=== PATIENT | female | born 1965 | race Caucasian/White ===

== ENCOUNTER 2021-01-09 00:19 | Emergency (ER) | payer OTHER ==
--- NOTE | 2021-01-09 00:36 | EDM.PDOC ---
ED HPI GENERAL MEDICAL PROBLEM - General Stated Complaint: SEVERE RIGHT ABDOMINAL PAIN Time Seen by Provider: 01/09/21 00:30 Source of Information: Reports: Patient History Limitations: Reports: No Limitations - History of Present Illness INITIAL COMMENTS - FREE TEXT/NARRATIVE: 55-year-old female who reports that almost nightly for about the past week and a half she has been having pain in her right posterior flank and back area seems to only be present when she is lying down for bed night the pain seems to be present for a good portion of the night and she doesn't really seem to have anything that makes the pain better or worse and by the morning, she reports the pain is gone and she doesn't really have any more pain through the day until she is lying down for bed at night again. She denies any nausea or vomiting and she denies any worsening with eating or drinking. She has had no fevers or chills. No cough. She has been eating and drinking per her norm. No dysuria or hematuria. Tonight, shortly after going to bed, at approximately 10 PM she developed pain in her right upper abdomen that seemed to wrap around and radiate through to her back. She states that it started rather small and gradually got worse over time. She states he got to the point of where the pain was a 10/10 and she was profusely diaphoretic associated with this. He states the pain is worse that she has ever had. She states she has never had pain like this before. He states that it really did not matter what position she was in, the pain just seemed to be all encompassing. The pain was just lining up and her rotted to the emergency department via private vehicle for evaluation. Her only after her vital signs were obtained, the patient reports the pain just started to let up and it has gradually improved over time. At the end of my initial evaluation of the patient, her pain was essentially gone there was no more sweating. She had no trouble breathing. There were no other associated signs or symptoms. There were no other modifying factors. 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 (see below) Right Upper Abdomen Pain Score (Numeric/FACES): 9 - Related Data Allergies Allergy/AdvReac Type Severity Reaction Status Date / Time adhesive Allergy Rash Verified 01/09/21 00:32 Home Meds: Home Meds Folic Acid 1 mg PO DAILY 01/09/21 [History] Hydroxychloroquine [Plaquenil] 100 mg PO BID 01/09/21 [History] metHOTREXate sodium [Methotrexate] 5 mg PO WEEKLY 01/09/21 [History] Past Medical History Musculoskeletal History: Reports: RA (On methotrexate and Plaquenil) - Past Surgical History HEENT Surgical History: Reports: Naso-Sinus Surgery Musculoskeletal Surgical History: Reports: Shoulder Surgery, Other (See Below) (Right open knee surgery. Right hand reconstructive surgery) Social & Family History - Tobacco Use Tobacco Use Status *Q: Unknown Ever Used Tobacco (Nonsmoker.) - Alcohol Use Alcohol Use History: Yes Alcohol Use Frequency: Rarely - Living Situation & Occupation Occupation: Employed ED ROS GENERAL - Review of Systems Review Of Systems: See Below Constitutional: Reports: Diaphoresis. Denies: Fever, Chills HEENT: Denies: Throat Pain, Vision Change Respiratory: Reports: Shortness of Breath. Denies: Hemoptysis Cardiovascular: Denies: Chest Pain, Palpitations GI/Abdominal: Reports: Abdominal Pain. Denies: Nausea, Vomiting : Reports: Flank Pain. Denies: Dysuria, Hematuria Musculoskeletal: Denies: Neck Pain, Shoulder Pain Skin: Reports: Diaphoresis. Denies: Rash, Erythema Neurological: Denies: Dizziness, Weakness Hematologic/Lymphatic: Denies: Easy Bleeding, Easy Bruising ED EXAM, GI/ABD - Physical Exam Exam: See Below Exam Limited By: No Limitations General Appearance: Alert, WD/WN, Mild Distress, Other (Patient improving during my exam.) Eyes: Bilateral: Normal Appearance (Sclera are anicteric), EOMI Ears: Normal External Exam, Hearing Grossly Normal Nose: Normal Inspection, Normal Mucosa, No Blood Throat/Mouth: Normal Inspection, Normal Oropharynx, Normal Voice, No Airway Compromise Head: Atraumatic, Normocephalic Neck: Normal Inspection, Supple, Non-Tender, Full Range of Motion Respiratory/Chest: No Respiratory Distress, Lungs Clear, Normal Breath Sounds, No Accessory Muscle Use, Chest Non-Tender Cardiovascular: Normal Peripheral Pulses, Regular Rate, Rhythm, No Murmur GI/Abdominal Exam: Normal Bowel Sounds, Soft, Tender, Other (Mildly tender in right upper quadrant.) Back Exam: Normal Inspection, Full Range of Motion. No: CVA Tenderness (R), CVA Tenderness (L) Extremities: Normal Inspection, Normal Range of Motion, Non-Tender, No Pedal Edema, Normal Capillary Refill Neurological: Alert, Oriented, CN II-XII Intact, Normal Cognition, No Motor/Sensory Deficits Skin Exam: Warm, Intact, Diaphoretic #1 Interpretation EKG Date: 01/09/21 Time: 00:52 Rhythm: NSR Rate (Beats/Min): 67 [place]: LAD-Left [place] Deviation (Slight left axis) P-Wave: Present QRS: Normal ST-T: Normal QT: Prolonged (Slightly prolonged QTc.) Comparison: NA - No Prior EKG Course - Vital Signs Last Recorded V/S: Last Vital Signs Temp 36.6 C 01/09/21 00:35 Pulse 69 01/09/21 01:44 Resp 20 01/09/21 00:35 BP 141/85 H 01/09/21 01:44 Pulse Ox 100 01/09/21 00:35 - Orders/Labs/Meds Orders: Active Orders 24 hr Category Date Time Status EKG Documentation Completion [RC] ASDIRECTED Care 01/09/21 00:54 Active CBC WITH AUTO DIFF [HEME] Stat Lab 01/09/21 01:05 Received EKG 12 Lead [EK] Routine Ther 01/09/21 00:53 Ordered Labs: Laboratory Tests 01/09/21 01/09/21 01/09/21 Range/Units 00:59 01:05 01:05 Sodium 145 (135-145) mmol/L Potassium 4.4 (3.5-5.3) mmol/L Chloride 107 (100-110) mmol/L Carbon Dioxide 30 (21-32) mmol/L BUN 24 H (7-18) mg/dL Creatinine 0.9 (0.55-1.02) mg/dL Est Cr Clr Drug Dosing TNP Estimated GFR (MDRD) > 60 (>60) BUN/Creatinine Ratio 26.7 H (9-20) Glucose 103 (80-116) mg/dL Calcium 8.7 (8.6-10.2) mg/dL Magnesium 2.3 (1.8-2.5) mg/dL Total Bilirubin 0.4 (0.1-1.3) mg/dL AST 28 H (5-25) IU/L ALT 48 H (12-36) U/L Alkaline Phosphatase 104 (56-112) IU/L Troponin I 5.4 (4.0-60.3) pg/mL C-Reactive Protein (0.5-0.9) mg/dL Total Protein 7.1 (6.0-8.0) g/dL Albumin 3.7 (3.5-5.2) g/dL Globulin 3.4 g/dL Albumin/Globulin Ratio 1.1 Lipase 158 (73-393) U/L Urine Color Yellow (YELLOW) Urine Appearance Clear (CLEAR) Urine pH 8.0 H (5.0-6.5) Ur Specific [place] 1.010 (1.010-1.025) Urine Protein Negative (NEGATIVE) mg/dL Urine Glucose (UA) Normal (NORMAL) mg/dL Urine Ketones Negative (NEGATIVE) mg/dL Urine Occult Blood Negative (NEGATIVE) Urine Nitrite Negative (NEGATIVE) Urine Bilirubin Negative (NEGATIVE) Urine Urobilinogen Normal (NEGATIVE) mg/dL Ur Leukocyte Esterase Negative (NEGATIVE) Urine RBC 0-5 (0-5) Urine WBC 0-5 (0-5) Ur Squamous Epith Cells Few H (NS,R,O) Urine Bacteria Few H (NS) 01/09/21 Range/Units 01:05 Sodium (135-145) mmol/L Potassium (3.5-5.3) mmol/L Chloride (100-110) mmol/L Carbon Dioxide (21-32) mmol/L BUN (7-18) mg/dL Creatinine (0.55-1.02) mg/dL Est Cr Clr Drug Dosing Estimated GFR (MDRD) (>60) BUN/Creatinine Ratio (9-20) Glucose (80-116) mg/dL Calcium (8.6-10.2) mg/dL Magnesium (1.8-2.5) mg/dL Total Bilirubin (0.1-1.3) mg/dL AST (5-25) IU/L ALT (12-36) U/L Alkaline Phosphatase (56-112) IU/L Troponin I (4.0-60.3) pg/mL C-Reactive Protein 0.6 (0.5-0.9) mg/dL Total Protein (6.0-8.0) g/dL Albumin (3.5-5.2) g/dL Globulin g/dL Albumin/Globulin Ratio Lipase (73-393) U/L Urine Color (YELLOW) Urine Appearance (CLEAR) Urine pH (5.0-6.5) Ur Specific [place] (1.010-1.025) Urine Protein (NEGATIVE) mg/dL Urine Glucose (UA) (NORMAL) mg/dL Urine Ketones (NEGATIVE) mg/dL Urine Occult Blood (NEGATIVE) Urine Nitrite (NEGATIVE) Urine Bilirubin (NEGATIVE) Urine Urobilinogen (NEGATIVE) mg/dL Ur Leukocyte Esterase (NEGATIVE) Urine RBC (0-5) Urine WBC (0-5) Ur Squamous Epith Cells (NS,R,O) Urine Bacteria (NS) - Re-Assessments/Exams Free Text/Narrative Re-Assessment/Exam: 01/09/21 02:20: The patient's LFTs and lipase were normal. Her CRP was normal. CBC is pending at this point and I am told that it may not be resulted tonight because of a machine malfunction. Reevaluation of the patient at this time shows that she is completely pain-free and feels much improved and radius. Her abdomen is soft and completely nontender. Her blood pressure has normalized. She is ready for discharge. Discussed with patient that she will need to follow-up with her primary provider today and that she will need additional outpatient testing and specifically she will need an ultrasound of her upper abdomen and gallbladder area. I think that this most probably was an episode of biliary colic and she has been having episodes of biliary colic for about the past week and a half. Departure - Departure Time of Disposition: 02:30 Disposition: Home, Self-Care 01 Condition: Good Clinical Impression: Abdominal pain of unknown etiology - Discharge Information Instructions: Abdominal Pain, Adult, [id number], Biliary Colic, Adult Referrals: Leora Cleveland PA-C [Primary Care Provider] - Additional Instructions: All of your blood tests were reassuring. There was no evidence of infection or inflammation at this time. Your liver tests were not elevated and your pancreas enzyme was not elevated. Your symptoms completely resolved while you were in the emergency department. Although I am not sure of the cause of your abdominal pain, I feel that it is likely due to a gallbladder attack as we discussed. You should avoid any fatty foods. You should increase your fluid intake. Follow-up with your primary doctor this week. You should call his or her office today to arrange for follow-up and they could even possibly arrange for you to have an ultrasound of your gallbladder as an outpatient as well. Back to the emergency department for increasing pain, unrelenting vomiting, fever or any other concerning sign or symptom. Sepsis Event Note (ED) - Focused Exam Vital Signs: Vital Signs Temp Pulse Resp BP Pulse Ox 01/09/21 01:44 69 141/85 H 01/09/21 00:35 36.6 C 73 20 190/98 H 100 - My Orders Last 24 Hours: My Active Orders 01/09/21 00:53 EKG 12 Lead [EK] Routine 01/09/21 00:54 EKG Documentation Completion [RC] ASDIRECTED 01/09/21 01:05 CBC WITH AUTO DIFF [HEME] Stat - Assessment/Plan Last 24 Hours: My Active Orders 01/09/21 00:53 EKG 12 Lead [EK] Routine 01/09/21 00:54 EKG Documentation Completion [RC] ASDIRECTED 01/09/21 01:05 CBC WITH AUTO DIFF [HEME] Stat
== END 2021-01-09 02:40 | disposition home or self-care (01) ==
LOC: FB.ED 00:19
DX: R10.11 Right upper quadrant pain (principal); Z91.048 Other nonmedicinal substance allergy status
CPT/HCPCS: 36415; 80053; 81001; 83690; 83735; 84484; 85025; 86140; 93005; 99284-25